=== PATIENT | female | born 2000 | race Caucasian/White ===

== ENCOUNTER 2023-08-01 13:28 | Outpatient (CLI) | payer OTHER, SELFPAY ==
--- NOTE | ~2023-08-01 | US_ITS ---
EXAMINATION: US OB <= 14 weeks fetus DATE: 08/01/2023 14:16 INDICATION: Size less than dates. TECHNIQUE: Real-time transabdominal pelvic ultrasound was performed. COMPARISON: None. FINDINGS: The uterus measures 12.7 x 6.5 x 8.1 cm. There is an intrauterine gestational sac. The crown ru mp length measures 5.1 cm, which correlates with an estimated gestational age of 11 weeks and 6 day(s ) (+/-) 1 week(s) and 0 day(s). heart motion is identified measuring 160 beats per minute (bpm) by M-mode Doppler. The right ovary measures 3.5 x 2.7 x 2.4 cm. The left ovary is not visualized. Th ere is no free fluid in the pelvis. IMPRESSION: 1. Single living intrauterine gestation with estimated date of delivery of 02/14/2024. Reviewed, dictated and finalized at location E. IMPRESSION: 1. Single living intrauterine gestation with estimated date of delivery of 01/24.
== END 2023-08-01 13:29 | disposition home or self-care (01) ==
PROVIDERS: Visit Provider Obstetrics & Gynecology Gynecology
DX: O36.5930 Maternal care for other known or suspected poor fetal growth, third trimester, not applicable or unspecified (principal); Z3A.00 Weeks of gestation of pregnancy not specified
CPT/HCPCS: 76801

== ENCOUNTER 2023-09-26 14:15 | Outpatient (CLI) | payer OTHER, SELFPAY ==
--- NOTE | ~2023-09-26 | US_ITS ---
EXAMINATION: US OB /maternal detail DATE: 09/26/2023 15:14 INDICATION: anatomic survey. TECHNIQUE: Real-time ultrasound of the pelvis was performed. COMPARISON: Ultrasound 08/01/2023 FINDINGS: There is a single living fetus in breech presentation. The placenta is anterior and fundal. he art rate is 142 beats per minute (bpm). The amniotic fluid volume is subjectively normal The following biometric data were obtained: Biparietal diameter (BPD): 4.8 cm; head circumference (HC): 18.0 cm; abdominal circumference (AC): 14 .8 cm; femur length (FL): 3.0 cm. These measurements are concordant. Estimated weight is 308 g +/- 46 g, which correlates with the 37th percentile when 02/14/24 is u sed as estimated date of delivery. As single measurements, these parameters are each equal to the following estimated gestational ages: BPD: 20 weeks 4 days. HC: 20 weeks 3 days. AC: 20 weeks 0 days. FL: 19 weeks 1 days. estimated gestational age based solely on measurements from this exam is 20 weeks 1 days +/- 1 weeks 3 days. The cerebral ventricles, cerebellum, cisterna magna, nuchal fold, and visualized portions of the spin e are normal. The heart is normal. The diaphragm, stomach, kidneys, and bladder are normal. There are two umbilical arteries to yield a 3-vessel cord. The cord insertion is normal. IMPRESSION: 1. Single living fetus in breech presentation. 2. Estimated weight is 308 g +/- 46 g, which correlates with the 37th percentile when 02/14/24 is used as estimated date of delivery. This date was set by ultrasound on 08/01/2023. 3. Normal anatomic survey. Reviewed, dictated and finalized at location E. IMPRESSION: 1. Single living fetus in breech presentation. 2. Estimated weight is 308 g +/- 46 g, which correlates with the 37th pe rcentile when 02/14/24 is used as estimated date of delivery. This date was set by ultrasound on 08/01/2023. 3. Normal anatomic survey.
== END 2023-09-26 14:16 | disposition home or self-care (01) ==
PROVIDERS: PCP Nurse Practitioner Family; Visit Provider Advanced Practice Midwife
DX: Z36.9 Encounter for antenatal screening, unspecified (principal); Z3A.20 20 weeks gestation of pregnancy
CPT/HCPCS: 76805

== ENCOUNTER 2023-12-12 12:59 | Outpatient (CLI) | payer OTHER, SELFPAY ==
[2023-12-12 14:43] LABS: Hematocrit 34.1 % (37.0-47.0)
[2023-12-12 14:51] LABS: Glucose 1 Hour PP 50gm Dose 105 mg/dL
[2023-12-12 15:42] LABS: Vitamin D 25 Hydroxy 18.8 ng/mL
[2023-12-12 16:07] LABS: HIV 1/2 Ab P24 Ag Result Negative (Negative)
== END 2023-12-12 13:00 | disposition home or self-care (01) ==
LOC: ANHLAB 13:02
PROVIDERS: PCP Nurse Practitioner Family; Visit Provider Obstetrics & Gynecology Gynecology
DX: Z34.93 Encounter for supervision of normal pregnancy, unspecified, third trimester (principal); Z3A.00 Weeks of gestation of pregnancy not specified
CPT/HCPCS: 36415; 82306; 82947; 85014; 85018; 86703; G0432

== ENCOUNTER 2023-12-25 12:51 | Outpatient (CLI) | payer OTHER, SELFPAY ==
--- NOTE | ~2023-12-25 | US_ITS ---
EXAMINATION: US OB follow up DATE: 12/25/2023 15:23 INDICATION: Estimated size less than expected for estimated gestational age during third trimes ter TECHNIQUE: Real-time ultrasound of the pelvis was performed. The interpreting radiologist was not pre sent for the study. COMPARISON: 09/26/2023 FINDINGS: There is a single living fetus in vertex presentation. The placenta is anterior and not low-lying. F etal heart rate is 158 beats per minute (bpm). The amniotic fluid index is 18.8 cm, which is normal (5th%-95%: 8.6-24.2 cm at 32 weeks estimated gestational age). The following biometric data were obtained: BPD: 8.0 cm -> 32 weeks 0 days Head circumference: 30.2 cm -> 33 weeks 4 days Abdominal circumference: 27.7 cm -> 31 weeks 6 days Femur length: 6.0 cm -> 31 weeks 2 days These measurements are concordant. Head circumference to abdominal circumference ratio: 1.09 (normal range 0.96-1.14). Estimated weight: 1843 g (+/-) 276 g or 4 lbs. 1 oz. (+/-) 10 oz. IMPRESSION: 1. Single living fetus in vertex presentation with heart rate of 158 bpm. 2. Normal amniotic fluid index of 18.8 cm. 3. Estimated weight is 29th percentile by Hadlock criteria when 02/18/2024 is used as the estima baldo date of delivery (MIHAELA). Please correlate with clinical information or earlier ultrasounds for mos t accurate MIHAELA. Reviewed, dictated and finalized at location A. CONTROL TECHNICIAN IMPRESSION: 1. Single living fetus in vertex presentation with heart rate of 158 bpm. 2. Normal amniotic fluid index of 18.8 cm. 3. Estimated weight is 29th percentile by Hadlock criteria when 02/18/2024 is used as the estimated date of delivery (MIHAELA). Please correlate with clinica l information or earlier ultrasounds for most accurate MIHAELA.
== END 2023-12-25 12:52 | disposition home or self-care (01) ==
PROVIDERS: PCP Nurse Practitioner Family; Visit Provider Obstetrics & Gynecology Gynecology
DX: O36.5990 Maternal care for other known or suspected poor fetal growth, unspecified trimester, not applicable or unspecified (principal); Z3A.00 Weeks of gestation of pregnancy not specified
CPT/HCPCS: 76816

== ENCOUNTER 2024-02-15 04:50 | Inpatient (IN) | payer OTHER, SELFPAY ==
[2024-02-15] VITALS (199 sets, daily range): BP systolic 64–221; BP diastolic 34–206; PULSE 66–282; RESP 16–18; TEMP 36.7–37.3; O2SAT 94–100; BMI 27.8
--- NOTE | 2024-02-15 07:34 | LDADM ---
This patient, Kathia Hansen, was admitted to Labor/Delivery/Recovery 104 on 02/15/24 at 04:50. Plans for labor, pain management and were discussed with patient. Patient/family oriented to hospital policies and general routines including ID bracelet, bed and alarms, visiting hours, pain management, procedures, bathroom and other care routines, personal items, smoking policy, room service/diet and guest tray routines, security routines, and visiting hours. Patient/Family are encouraged to report perceived risks to care and to ask questions if they do not understand what they are told or what they should do. See OBIX for further documentation.
[2024-02-15] MEDS: LACTATED RINGERS 1,000 ML 125 ML IV CONT ×3 (07:48→12:34)
[2024-02-15 07:51] LABS: Basophils Absolute Auto 0.1 K/mm3 (0.0-0.1); Basophils Percent Auto 0.8 % (0.2-1.2); Eosinophils Absolute Auto 0.2 K/mm3 (0-0.3); Eosinophils Percent Auto 1.3 % (0-4.4); Hematocrit 34.6 % (37.0-47.0); Hemoglobin 11.2 g/dL (12.0-15.0); Immature Granulocyte Absolute 0.08 K/mm3 (0.00-0.031); Immature Granulocyte Percent A 0.7 % (0-0.5); Lymphocytes Absolute Auto 2.24 K/mm3 (0.9-3.2); Lymphocytes Percent Auto 19.8 % (18.3-44.2); Mean Corpuscular HGB Conc 32.4 g/dl (32-36); Mean Corpuscular Hemoglobin 29.6 pg (26-34); Mean Corpuscular Volume 91.3 fl (80-100); Mean Platelet Volume 11.3 fl (7.4-10.4); Monocytes Absolute Auto 0.7 K/mm3 (0.1-0.6); Monocytes Percent Auto 5.8 % (2.6-8.5); Neutrophils Absolute Auto 8.1 K/mm3 (1.3-6.7); Neutrophils Percent Auto 71.6 % (45.5-73.1); Platelet Count Result 275 k/mm3 (150-375); Red Blood Count 3.79 M/mm3 (4.2-5.4); Red Cell Distribution Width 12.9 % (11.5-14.5); White Blood Count 11.3 K/mm3 (4.5-10.0)
--- NOTE | 2024-02-15 08:26 | WPDANESEPP ---
Anes - Eval Pre Procedure Procedure: Labor epidural Date/Time: 02/15/24 08:26 Surgeon: Earl Preop Diagnosis: Pain during labor Pre Op Diagnosis: Contractions Patient Data Age: 23 Gender: F Height: 1.55 m Weight: 67 kg Last Vital Signs Pulse 101 H 02/15/24 08:15 BP 144/87 H 02/15/24 08:15 O2 Del Method Room Air 02/15/24 07:33 Allergies Allergy/AdvReac Type Severity Reaction Status Date / Time benzoyl peroxide Allergy Unknown facial Verified 02/15/24 07:40 swelling,itching Home Medications Medication Instructions Recorded Confirmed Type vits no.126-ferrous fum 1 tablet PO DAILY 01/29/24 01/29/24 History 28 mg iron-folic acid 800 mcg tablet (Classic ) Laboratory Tests 02/15/24 07:29 WBC 11.3 H K/mm3 (4.5-10.0) RBC 3.79 L M/mm3 (4.2-5.4) Hgb 11.2 L g/dL (12.0-15.0) Hct 34.6 L % (37.0-47.0) MCV 91.3 fl (80-100) MCH 29.6 pg (26-34) MCHC 32.4 g/dl (32-36) RDW 12.9 % (11.5-14.5) Plt Count 275 k/mm3 (150-375) MPV 11.3 H fl (7.4-10.4) Immature Gran % (Auto) 0.7 H % (0-0.5) Neut % (Auto) 71.6 % (45.5-73.1) Lymph % (Auto) 19.8 % (18.3-44.2) [place] % (Auto) 5.8 % (2.6-8.5) Eos % (Auto) 1.3 % (0-4.4) Baso % (Auto) 0.8 % (0.2-1.2) Lymph # (Auto) 2.24 K/mm3 (0.9-3.2) [place] # (Auto) 0.7 H K/mm3 (0.1-0.6) Eos # (Auto) 0.2 K/mm3 (0-0.3) Baso # (Auto) 0.1 K/mm3 (0.0-0.1) Abs Immat Gran (auto) 0.08 H K/mm3 (0.00-0.031) Absolute Neuts (auto) 8.1 H K/mm3 (1.3-6.7) Absolute Nucleated RBC 0.000 K/mm3 (0.0-0.012) Nucleated RBC % 0.0 % (0.0-0.2) RPR Pending Patient hx anesthesia problems: none Family hx anesthesia problems: none Results Review: All pre-operative results and documents have been reviewed as part of the pre-operative evaluation. [facility] Family History Family History Other No pertinent family history Social History Social History Smoking status: Never smoker Substance use: never Do You Feel Safe in your Home?: Yes Lack of Transportation: No Lack of Food: Never True Current Housing: I Have Housing Concerned About Future Housing: No Difficulty Paying Gas/Electric Bills: No Difficulty Paying for Meds: No Currently Unemployed: No Education: High School Diploma/GED Difficulty w/ Childcare or Family Care: No Spiritual care concerns: No Exam Day of Procedure 02/15/24 08:26 Patient weight: overweight Neurological: alert and oriented
[2024-02-15] MEDS: OXYTOCIN 30 UNITS/NS 500 ML 30 UNITS/500 ML BAG IV CONT (09:28)
--- NOTE | 2024-02-15 11:04 | WPDOBADMIT ---
Obstetrics - Admit Note Admission Note: record reviewed. Additions to the history and/or subsequent changes in the physical findings follow. 23 y/o at 39 4/7 weeks here with contractions. Labor was diagnosed. She is now comfortable with epidural. GBS neg. AVSS NST reactive TOCO: contractions every 2-3 min ABD soft, nontender, gravid, vertex EXT nontender Cervix 4/50/-2. AROM with clear fluid. IUPC placed. Vertex. A: IUP at term with labor. P: Anticipate . Augment labor as needed.
--- NOTE | 2024-02-15 15:22 | PM.OBPNLAB ---
Pain Control Date/time seen: 02/15/24 15:22 Comfortable with epidural. AVSS NST reactive TOCO: contractions every 2-3 min ABD soft, nontender, gravid, vertex EXT nontender Cervix 780/-1 per RN Continue labor.
[2024-02-15] MEDS: miSOPROStol 200 MCG TABLET 800 MCG RECTAL (18:13)
--- NOTE | 2024-02-15 18:18 | PM.OBPRVD ---
OB - Vaginal Delivery Note Procedure Delivery date: 02/15/24 Induction method: None Delivery augmentation: Rupture of Membranes and Pitocin Delivery monitor: External FHT, External Uterine and Internal Uterine Route of delivery: Episiotomy description: None Laceration Description: Perineal - 2nd Degree Delivery repair: vicryl (3-0) Specimen: No Quantitative Blood Loss (ml): 310 Anesthesia type: Epidural Disposition: PACU Complications: None Narrative: 23 y/o at 39 4/7 weeks gestation who presented to the hospital with contractions. Labor was diagnosed. Amniotomy was performed with return of clear fluid. She received an epidural for pain control. Labor was subsequently augmented using oxytocin. Her labor progressed and her cervix dilated completely. She pushed with good effort and delivered the infant's head to the perineum, followed by the body. The nose and mouth were bulb suctioned. After a delay, the cord was clamped and cut. The was handed off the field. Cord blood was collected. The placenta delivered spontaneously and was grossly normal in appearance. The usual 3 vessel cord was noted. A second degree midline perineal laceration was sustained. This was reapproximated using 3 0 Vicryl in the usual layered fashion. Excellent hemostasis resulted as did excellent reapproximation of the normal anatomy. Needle and instrument counts were correct. The patient was taken to recovery room in stable condition. The infant went to the nursery in stable condition. I was present and scrubbed for the entire delivery. [place] Baby Date of : 02/15/24 Time of : 17:55 Weeks of gestation at delivery: 39 gender: Male presentation: vertex position: Left Occiput Anterior Placenta delivery description: Spontaneous and Normal Configuration Cord Vessel Description: 3 Vessels and Delayed Cord Clamping score one minute: 8 score five minutes: 9
--- NOTE | 2024-02-15 18:21 | PM.OBDSVD ---
DS: Admitting Diagnosis Discharge Date 02/17/24 Admitting Diagnosis IUP at 39 4/7 weeks Labor DS: Discharge Diagnosis Discharge Diagnosis (1) (normal spontaneous vaginal delivery): Code(s): O80 - Encounter for full-term uncomplicated delivery Status: Acute OB - DS: Summary OB Procedures : None OB Procedures Intrapartum: Spontaneous Vag Delivery OB Procedures: : None Peripartum Data Laceration Description: Perineal - 2nd Degree Episiotomy description: None Time Spent with Patient Time attestation: Total time spent providing and/or coordinating discharge services: DS: Data Data Completed and Pending Labs on day of discharge: Labs from last 24 hours 02/15/24 07:29 WBC 11.3 H RBC 3.79 L Hgb 11.2 L Hct 34.6 L MCV 91.3 MCH 29.6 MCHC 32.4 RDW 12.9 Plt Count 275 MPV 11.3 H Immature Gran % (Auto) 0.7 H Neut % (Auto) 71.6 Lymph % (Auto) 19.8 [place] % (Auto) 5.8 Eos % (Auto) 1.3 Baso % (Auto) 0.8 Lymph # (Auto) 2.24 [place] # (Auto) 0.7 H Eos # (Auto) 0.2 Baso # (Auto) 0.1 Abs Immat Gran (auto) 0.08 H Absolute Neuts (auto) 8.1 H Absolute Nucleated RBC 0.000 Nucleated RBC % 0.0 RPR Pending Blood Type A Positive Antibody Screen Negative Discharge Plan Discharge Attending physician on discharge: Chaya Elliott Consulting providers: Rhoda Hernandez Discharging Clinician: Chaya Elliott Patient Disposition: Home, Self-Care Activity: pelvic rest Diet: regular Discharge Instructions: Call or return if temperature above 100.4? F, increased abdominal pain, increased vaginal bleeding or any new problems. Education: Mom and Baby Guide Given to: Mother Follow-Up: Call your delivering provider's office for an appointment to be seen in: 6 Weeks Mom and baby should come to the [facility] for the follow-up appointment. Appointment Date/Time: February 19, 2024 at 11:00 am What to expect at your follow-up visit: Physical Assessment Call [phone] if you are unable to keep your appointment time. BREAST CARE: * Wear a snug supportive bra. * For engorgement discomfort: Breast Feeding: * Apply warm moist washcloths * Express milk as needed to relieve engorgement * Wear loose clothing * For sore nipples: * Identify correct latch-on * Apply warm moist washcloths before and after nursing * Air dry nipples after nursing * May apply Lansinoh cream to nipples EPISIOTOMY/PERINEAL CARE: * Until bleeding stops, use your johan bottle after urinating * Change your pad frequently throughout the day * You may take sitz baths several times a day (fill your bathtub with warm water and soak for 20 minutes.) Do NOT bathe in the water * No tub baths until seen by your physician - You may shower ACTIVITY: * Rest as much as possible. * Do not exercise or lift anything heavier than your baby (such as laundry or other children.) * Avoid stairs or driving as much as possible. * Do not put anything into the vagina. No douching, tampons, or sexual activity until seen by physician. NOTIFY PHYSICIAN IF YOU HAVE ANY QUESTIONS OR IF ANY OF THE FOLLOWING SYMPTOMS OCCUR: * If your episiotomy or incision becomes red, swollen, or more painful than what you have experienced in the hospital. * If your vaginal bleeding becomes foul smelling. * If your vaginal bleeding becomes more heavy than a period or if your bleeding changes from pink to bright red. However, you may pass an occasional walnut-sized clot once or twice for the first week . * If you experience a sharp, shooting pain in you calves. * If you discover a hard, reddened area on your breast or if you experience flu-like symptoms. DIET: * Eat regular, well-balanced meals. * Drink plenty of fluids daily. If , drink to thirst. Stand Alone Forms: General Discharge Information
[2024-02-15] MEDS: OXYTOCIN 30 UNITS/NS 500 ML 30 UNITS/500 ML BAG 125 UNITS IV CONT (18:25)
[2024-02-15] MEDS: IBUPROFEN 600 MG TABLET PO (19:50)
[2024-02-15] MEDS: BENZOCAINE 20% AER SPR (*SP) 56 GM CAN 1 SPRAY TOPICAL (19:51)
[2024-02-15] MEDS: WITCH HAZEL 40 PADS 1 PAD TOPICAL (19:51)
[2024-02-15] MEDS: ACETAMINOPHEN 325 MG TABLET 650 MG PO (20:56)
--- NOTE | 2024-02-15 22:11 | OBPPTRN ---
Patient transferred to post room #292 via wheelchair, baby boy Brenden in crib at her side along with the baby's father. Oriented to unit, room, information board, rooming in, admission packet and security measures. Patient verbalizes understanding.
[2024-02-16] MEDS: IBUPROFEN 600 MG TABLET PO ×3 (02:53→20:35)
[2024-02-16 03:58] VITALS: BP 102/64; PULSE 78; RESP 16; TEMP 37.1
[2024-02-16 04:46] LABS: Hematocrit 26.1 % (37.0-47.0); Hemoglobin 8.3 g/dL (12.0-15.0)
[2024-02-16] MEDS: ACETAMINOPHEN 325 MG TABLET 650 MG PO ×2 (07:35→16:04)
[2024-02-16] MEDS: DOCUSATE SODIUM 100 MG CAPSULE PO ×2 (07:35→16:04)
[2024-02-16] MEDS: POLYSACCHARIDE IRON COMPLEX 150 MG CAPSULE PO ×2 (07:35→16:05)
[2024-02-16] MEDS: MULTIVIT/MIN/PREN/FOL AC/IRON TABLET 1 TAB PO (07:39)
[2024-02-16 07:48] VITALS: BP 120/72; PULSE 72; RESP 18; TEMP 36.6; O2SAT 98
--- NOTE | 2024-02-16 08:03 | WPDANLDPN2 ---
Anes-Prog Note L&D Date/Time: 02/16/24 08:03 Comfortable throughout: labor and delivery Neuraxial method: epidural Epidural/Spinal procedure site: clean & non-tender Neuro status: Neuro function grossly intact. Cardiovascular status: normal Respiratory status: normal Airway patency: baseline Mental status: baseline Post-Op hydration status: normal Vital Signs: Last Vital Signs Temp 36.6 C 02/16/24 07:48 Pulse 72 02/16/24 07:48 Resp 18 02/16/24 07:48 BP 120/72 02/16/24 07:48 Pulse Ox 98 02/16/24 07:48 O2 Del Method Room Air 02/15/24 07:33 Pain score (VAS): 0/10 I/O: Intake & Output 02/15/24 02/16/24 02/16/24 23:59 07:59 15:59 Intake Total 500 Output Total 350 Balance 150 Post-procedural complaints: none Patient feedback: Patient satisfied with anesthetic care.
--- NOTE | 2024-02-16 10:04 | PM.OBPNVD ---
OB - PN: Subj Subjective Date/time seen: 02/16/24 10:04 Narrative: Pain OK. OB - PN: Obj Data Labs 02/16/24 04:40 Labs: Laboratory Results - last 24 hr 02/16/24 04:40 Hgb 8.3 L Hct 26.1 L OB - PN A/P Plan Comments: A: PPD#1, doing well. P: Routine care. Exam Psych: Other: AVSS ABD soft, nontender, fundus firm EXT nontender
[2024-02-16 11:59] VITALS: BP 109/59; PULSE 94; RESP 18; TEMP 36.6; O2SAT 98
[2024-02-16] MEDS: WITCH HAZEL 40 PADS 1 PAD TOPICAL (12:51)
[2024-02-16] MEDS: LANOLIN (LANSINOH) 7.5 GM CREAM 1 APPLIC TOPICAL (16:05)
--- NOTE | 2024-02-16 16:17 | PC.NURSE ---
Patient viewed the discharge video Mother & Baby Care, The First Two Weeks . Patient was given the opportunity and encouraged to ask questions. Patient verbalized understanding of information shared and has been given the mother/baby guide for home reference.
[2024-02-16 20:25] VITALS: BP 119/85; PULSE 84; RESP 16; TEMP 36.3; O2SAT 100
[2024-02-17] MEDS: DOCUSATE SODIUM 100 MG CAPSULE PO (08:55)
[2024-02-17] MEDS: IBUPROFEN 600 MG TABLET PO (08:56)
[2024-02-17] MEDS: POLYSACCHARIDE IRON COMPLEX 150 MG CAPSULE PO (08:56)
[2024-02-17] MEDS: MULTIVIT/MIN/PREN/FOL AC/IRON TABLET 1 TAB PO (08:56)
[2024-02-17 09:00] VITALS: BP 119/80; PULSE 90; RESP 16; TEMP 36.6; O2SAT 96
--- NOTE | 2024-02-17 09:51 | PM.OBPNVD ---
OB - PN: Subj Subjective Date/time seen: 02/17/24 09:51 Patient comments: no complaints and pain well controlled baby status: doing well OB - PN: Obj Data Labs 02/16/24 04:40 OB - PN A/P Plan day: 2 Plan: routine care, discharge home, follow up 6 weeks and other (unsure control plans) Time Spent With Patient Time: Total time spent is greater than 50% in coordination of care (as documented) at patient's floor/unit and/or counseling patient: Exam : Bimanual exam- vagina & uterus: other (Uterus firm, nt @U)
--- NOTE | 2024-02-17 10:16 | PC.NURSE ---
[phone] Introductions were made. Mother is getting VS done by student RN with Primary RN present and distracted with Primary care. Name written on the communication board and father encouraged to call for when they are finished. Father voiced understanding.
--- NOTE | 2024-02-17 10:52 | PC.NURSE ---
[phone] Purposefully rounded to assess for needs. Mother verbalizes she is able to independently latch with appropriate positioning and alignment. She denies any nipple discomfort and is responsively . is currently meeting outcomes for weight, output, jaundice, blood sugar and feeding frequencies of 8-12 times in 24 hours. Mother declines any additional assistance or education at this time. Mother is encouraged to call for assistance if her doesn?t latch, pain with latching, questions or concerns. Mother voiced understanding of information shared along with the feeding sheet and the mom/baby guide for an additional resource.
[2024-02-17 16:53] LABS: Rapid Plasma Reagin Non-Reactive (NonReactive)
[2024-02-19 11:44] VITALS: BP 117/78; PULSE 105; RESP 20; TEMP 36.3; O2SAT 98
== END 2024-02-17 11:15 | disposition home or self-care (01) | DRG 560 ==
LOC: ANHLDR 18:22 → ANHOB2 20:44
PROVIDERS: Admitting Provider Obstetrics & Gynecology; PCP Nurse Practitioner Family; Visit Provider Obstetrics & Gynecology Gynecology
DX: O69.81X0 Labor and delivery complicated by cord around neck, without compression, not applicable or unspecified (principal); Z37.0 Single live birth; Z3A.39 39 weeks gestation of pregnancy; O70.1 Second degree perineal laceration during delivery
CPT/HCPCS: 36415; 85014; 85018; 85025; 86592; 86850; 86900; 86901; A9270; J2590; J2795; J7120